=== PATIENT | male | born 1980 | race African-American/Black ===

== ENCOUNTER 2020-06-02 20:03 | Emergency (ER) | payer OTHER ==
[2020-06-02 20:25] VITALS: BP 124/73; PULSE 69; TEMP 98.7; BMI 30.2
[2020-06-02] MEDS ORDERED: DIPHTH,PERTUSS(ACELL),TET 0.5 ML DISP.SYRIN IM ONE (21:19)
== END 2020-06-02 22:15 | disposition home or self-care (01) ==
LOC: JER 20:03 → JERFT 20:03
PROC: 0HQFXZZ Repair Right Hand Skin, External Approach (ICD-10-PCS; principal; 2020-06-02)
DX: S61.216A Laceration without foreign body of right little finger without damage to nail, initial encounter (principal)
CPT/HCPCS: 90715; 99284-25